=== PATIENT | female | born 1970 | race Caucasian/White ===

== ENCOUNTER 2023-10-15 15:21 | Outpatient (CLI) | payer BC | END 2023-10-15 15:22 | disposition home or self-care (01) | LOC: BICMAMMO 15:21 | PROVIDERS: ATTEND Internal Medicine | DX: M47.22 Other spondylosis with radiculopathy, cervical region (principal); R05.9 Cough, unspecified; M47.816 Spondylosis without myelopathy or radiculopathy, lumbar region | CPT/HCPCS: 71046; 72040; 72100 ==

== ENCOUNTER 2023-10-18 15:06 | Outpatient (CLI) | payer BC | END 2023-10-18 15:07 | disposition home or self-care (01) | LOC: BICMRI 15:06 | PROVIDERS: ATTEND Internal Medicine | DX: M47.22 Other spondylosis with radiculopathy, cervical region (principal) | CPT/HCPCS: 72141 ==